=== PATIENT | male | born 1965 | race African-American/Black ===

== ENCOUNTER 2017-12-02 05:49 | Inpatient (IN) | payer BC, OTHER ==
[2017-12-01 13:20] VITALS: BMI 26.6
[2017-12-02] MEDS ORDERED: GENTAMICIN SO4 80 MG/2 ML VIAL ONE ×3 (07:28→09:09)
[2017-12-02] MEDS ORDERED: BUPIVACAINE HCL/PF 0.5% (5MG/ML) 10 ML VIAL ONE ×2 (07:29→09:09)
[2017-12-02] MEDS ORDERED: THROMBIN (BOVINE) 20,000 UNIT VIAL TP ONE ×2 (07:29→09:09)
[2017-12-02] MEDS ORDERED: LIDOCAINE 1%/EPI 1:100000 (20 ML MULTI DOSE VIAL) ONE ×2 (07:29→09:09)
--- NOTE | 2017-12-02 08:08 | HP ---
History & Physical Update - History History: No Change - Physical Physical: No Change - Assessment Assessment: No Change - Plan Plan: No Change (no interval changes since visit with song pitts on . proceed with surgery as discussed with Dr Bland)
[2017-12-02] MEDS ORDERED: fentaNYL CITRATE 250 MCG/5 ML VIAL ONE ×3 (08:24→10:59)
[2017-12-02] MEDS ORDERED: PROPOFOL 20 ML ONE ×3 (08:24→10:43)
[2017-12-02] MEDS ORDERED: ROCURONIUM BROMIDE 50 MG/5 ML VIAL ONE ×3 (08:24→11:22)
[2017-12-02] MEDS ORDERED: MIDAZOLAM HCL 2 MG/2 ML SINGLE DOSE VIAL ONE ×2 (08:25→12:40)
[2017-12-02] MEDS ORDERED: ceFAZolin SODIUM 1 GM VIAL ONE ×2 (08:31→11:51)
[2017-12-02] MEDS ORDERED: SODIUM CHLORIDE 0.9% P/F 10 ML VIAL IJ ONE ×2 (08:31→11:51)
[2017-12-02] MEDS ORDERED: ceFAZolin SODIUM 1 GM VIAL IVPB ONE (08:55)
[2017-12-02] MEDS ORDERED: VANCOMYCIN 1,000 MG VIAL (RESTRICTED TO ID ONLY) ONE ×2 (08:55→08:59)
[2017-12-02] MEDS ORDERED: VANCOMYCIN 1,000 MG VIAL (RESTRICTED TO ID ONLY) IVPB ONE (09:00)
[2017-12-02] MEDS ORDERED: DESFLURANE GAS 240 ML BOTTLE IH ONE (09:00)
[2017-12-02] MEDS ORDERED: ONDANSETRON 4 MG/2 ML VIAL ONE ×2 (09:05→12:27)
[2017-12-02] MEDS ORDERED: DEXAMETHASONE SOD PHOSPHATE 4 MG/1 ML VIAL ONE ×3 (09:05→15:47)
[2017-12-02] MEDS ORDERED: LIDOCAINE 1%/EPI 1:100000 (20 ML MULTI DOSE VIAL) INF ONE (09:09)
[2017-12-02] MEDS ORDERED: GENTAMICIN SO4 80 MG/2 ML VIAL IVPB ONE (09:11)
[2017-12-02] MEDS ORDERED: BACITRACIN 50,000 UNITS VIAL TP ONE (09:12)
[2017-12-02] MEDS ORDERED: THROMBIN (BOVINE) 5,000 UNIT VIAL TP ONE (09:12)
[2017-12-02] MEDS ORDERED: BUPIVACAINE HCL/PF 0.5% (5MG/ML) 10 ML VIAL IJ ONE ×2 (10:12→11:53)
[2017-12-02] MEDS ORDERED: GLYCOPYRROLATE 0.2 MG/1 ML VIAL ONE (12:04)
[2017-12-02] MEDS ORDERED: NEOSTIGMINE METHYLSULFATE 0.5 MG/ML - 10 ML MDV ONE (12:05)
[2017-12-02] MEDS ORDERED: PROMETHAZINE HCL 25 MG/1 ML VIAL IVPB PRN (12:50)
[2017-12-02] MEDS ORDERED: ONDANSETRON 4 MG/2 ML VIAL IVPUSH PRN ×2 (12:50→12:57)
[2017-12-02] MEDS ORDERED: DEXAMETHASONE SOD PHOSPHATE 4 MG/1 ML VIAL IVPUSH ONE (12:50)
[2017-12-02] MEDS ORDERED: HYDROmorphone *PCA* 6MG/30ML DISP.SYRIN PCA ONE (12:53)
[2017-12-02] MEDS ORDERED: LACTATED RINGERS SOLUTION 1,000 ML IV SCH (13:00)
[2017-12-02] MEDS: LACTATED RINGERS SOLUTION 1,000 ML IV SCH ×2 (13:00→21:45)
--- NOTE | 2017-12-02 13:41 | SURG ---
Surgery Private Inquiry Agent Note Private Inquiry Agent: Cindy Reyna PA-C Date of Service: 12/02/17 Diagnosis: cervical spondylosis Procedure: cervical 4-5 corpectomies and christian of lordosis and reconstruction with peek cage and anterior plate, Cervical 3-7 laminectomies and lateral mass instrumentation I was present for the entirety of the operative procedure. For further detail, please refer to operative report. Visit type - Case Type Case Type: Scheduled Admission - Emergency Emergency Visit: No - New patient This patient is new to me today: Yes Date on this admission: 12/02/17
--- NOTE | 2017-12-02 13:41 | OP ---
Operative Note - Note: Operative Date: 12/02/17 Pre-Operative Diagnosis: cervical spondylosis Operation: cervical 4-5 corpectomies and muslim of lordosis and reconstruction with peek cage and anterior plate, Cervical 3-7 laminectomies and lateral mass instrumentation Post-Operative Diagnosis: Same as Pre-op Surgeon: Te Bland Paint Roller Cover Machine Setter: Cindy Reyna Anesthesiologist/PLANIMETER OPERATOR: Mateus Albrecht Anesthesia: General, Local Estimated Blood Loss (mls): 550 Drains, Volume Out (mls): 125 (urine from garcias) Fluid Volume Replaced (mls): 1,200 Operative Report Dictated: Yes
--- NOTE | 2017-12-02 14:23 | CON.ID ---
Consult Consult Specialty:: infectious diseases Reason for Consultation:: post op, uti - History of Present Illness Chief Complaint: h/o neck pain arm pain and numbness History of Present Illness: patient with h/o of neck and arm pain and numbness was seen by neurosurgery and taken to the OR for cervical 4-5 corpectomies and congregation of lordosis and reconstruction with peek cage and anterior plate, Cervical 3-7 laminectomies and lateral mass instrumentation. patient currently post op and stable receive abx during the procedure in neck collar - History Source History Provided By: Patient, Medical Record Limitations to Obtaining History: Clinical Condition - Alcohol/Substance Use Hx Alcohol Use: Yes (OCCAS) - Smoking History Smoking history: Current every day smoker Have you smoked in the past 12 months: Yes Aproximately how many cigarettes per day: 12 Home Medications - Allergies Allergies/Adverse Reactions: Allergies Allergy/AdvReac Type Severity Reaction Status Date / Time No Known Allergies Allergy Verified 12/02/17 07:37 - Home Medications Home Medications: Ambulatory Orders NK [No Known Home Medication] 12/01/17 Review of Systems - Review of Systems Constitutional: reports: No Symptoms Eyes: reports: No Symptoms HENT: reports: No Symptoms Neck: reports: Pain on Movement, Stiffness Cardiovascular: reports: No Symptoms Respiratory: reports: No Symptoms Gastrointestinal: reports: No Symptoms Musculoskeletal: reports: Other (arm numbness) Integumentary: reports: No Symptoms Neurological: reports: Numbness (of the arm) Hematology/Lymphatic: reports: No Symptoms Psychiatric: reports: No Symptoms Physical Exam Vital Signs: Vital Signs Temperature 97.2 F L 12/02/17 12:42 Pulse Rate 102 H 12/02/17 14:00 Respiratory Rate 16 12/02/17 14:00 Blood Pressure 139/74 12/02/17 14:00 O2 Sat by Pulse Oximetry (%) 99 12/02/17 13:55 Constitutional: Yes: No Distress, Calm Neck: Yes: Other (in rigid collar) Cardiovascular: Yes: Regular Rate and Rhythm Respiratory: Yes: Regular, CTA Bilaterally Gastrointestinal: Yes: Normal Bowel Sounds, Soft Musculoskeletal: Yes: Other Extremities: Yes: WNL Wound/Incision: Yes: Other (in neck collar has 2 drains) Neurological: Yes: Alert, Oriented Psychiatric: Yes: Alert, Oriented Assessment/Plan Problem List - Problems (1) Herniated disc, cervical Code(s): M50.20 - OTHER CERVICAL DISC DISPLACEMENT, UNSP CERVICAL REGION (2) 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
[2017-12-02] MEDS: HEPARIN NA (PORCINE) 5,000 UNITS/ML 1ML VIAL SQ SCH ×2 (15:40→21:46)
[2017-12-02] MEDS ORDERED: HEPARIN NA (PORCINE) 5,000 UNITS/ML 1ML VIAL ONE (15:47)
--- NOTE | 2017-12-02 18:01 | HP ---
Admitting History and Physical - Primary Care Physician PCP: Moises Cardozo - Admission Chief Complaint: neck pain, arm pain/numbness History of Present Illness: cervical 4-5 corpectomies and anglican of lordosis and reconstruction with peek cage and anterior plate, Cervical 3-7 laminectomies and lateral mass instrumentation. History Source: Patient Limitations to Obtaining History: No Limitations - Past Surgical History Past Surgical History: Yes: None - Smoking History Smoking history: Current every day smoker Have you smoked in the past 12 months: Yes Aproximately how many cigarettes per day: 12 - Alcohol/Substance Use Hx Alcohol Use: Yes (OCCAS) - Social History Usual Living Arrangement: Yes: Alone ADL: Independent History of Recent Travel: No Home Medications - Allergies Allergies/Adverse Reactions: Allergies Allergy/AdvReac Type Severity Reaction Status Date / Time No Known Allergies Allergy Verified 12/02/17 07:37 - Home Medications Home Medications: Ambulatory Orders NK [No Known Home Medication] 12/01/17 Family Disease History - Family Disease History Family History: Unremarkable Review of Systems - Review of Systems Constitutional: reports: No Symptoms Neck: reports: Other (post op collar, pain) Respiratory: reports: No Symptoms Gastrointestinal: reports: No Symptoms Genitourinary: reports: No Symptoms Integumentary: reports: No Symptoms Neurological: reports: No Symptoms Endocrine: reports: No Symptoms Physical Examination Vital Signs: Vital Signs Temperature 97.2 F L 12/02/17 12:42 Pulse Rate 67 12/02/17 16:40 Respiratory Rate 16 12/02/17 16:40 Blood Pressure 144/92 12/02/17 16:40 O2 Sat by Pulse Oximetry (%) 98 12/02/17 16:40 Constitutional: Yes: Well Nourished, Calm Eyes: Yes: Conjunctiva Clear HENT: Yes: Atraumatic, Normocephalic Neck: Yes: Other (in cervical collar) Cardiovascular: Yes: Regular Rate and Rhythm Respiratory: Yes: CTA Bilaterally Gastrointestinal: Yes: Normal Bowel Sounds, Soft Renal/: Yes: WNL Extremities: Yes: WNL Edema: No Peripheral Pulses WNL: Yes Integumentary: Yes: Other (surgical wound covered, 2 drains present with sanguinous drainage) Neurological: Yes: WNL ...Motor Strength: WNL Psychiatric: Yes: WNL Imaging - Results Cat Scan: Pending (done) Problem List - Problems (1) Herniated disc, cervical Code(s): M50.20 - OTHER CERVICAL DISC DISPLACEMENT, UNSP CERVICAL REGION (2) 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
[2017-12-02] MEDS: HYDROmorphone *PCA* 6MG/30ML DISP.SYRIN PCA SCH (19:03)
[2017-12-02] MEDS: NICOTINE 21 MG/24 HOURS TOPICAL PATCH TD SCH (19:03)
[2017-12-02] MEDS: CEFAZOLIN 1 GM/D5W 1 GM/50 ML BAG IVPB SCH (20:05)
[2017-12-03] MEDS: CEFAZOLIN 1 GM/D5W 1 GM/50 ML BAG IVPB SCH ×3 (01:26→17:18)
[2017-12-03] MEDS: HEPARIN NA (PORCINE) 5,000 UNITS/ML 1ML VIAL SQ SCH ×3 (06:10→21:23)
[2017-12-03] MEDS: LACTATED RINGERS SOLUTION 1,000 ML IV SCH ×3 (06:57→15:53)
--- NOTE | 2017-12-03 08:12 | PN ---
Progress Note (short form) - Note Progress Note: c/o neck pain, otherwise well. 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
[2017-12-03 08:53] LABS: HEMATOCRIT 33.8 % (35.4-49); HEMOGLOBIN 11.3 GM/dL (11.7-16.9); MCH 33.5 pg (25.7-33.7); MCHC 33.6 g/dl (32.0-35.9); MEAN CELL VOLUME 99.8 fl (80-96); MEAN PLT VOLUME 8.9 fl (7.5-11.1); PLATELET COUNT 276 K/MM3 (134-434); RBC 3.39 M/mm3 (4.00-5.60); RDW 12.2 % (11.9-15.9); WHITE BLOOD COUNT 17.4 K/mm3 (4.0-10.0)
[2017-12-03] MEDS: HYDROmorphone *PCA* 6MG/30ML DISP.SYRIN PCA SCH ×2 (08:56→14:09)
[2017-12-03 09:15] LABS: ALBUMIN 3.2 g/dl (3.4-5.0); ANION GAP 10 (8-16); BLOOD UREA NITROGEN 11 mg/dL (7-18); CALCIUM 8.8 mg/dL (8.5-10.1); CHLORIDE 106 mmol/L (98-107); CO2 26 mmol/L (21-32); GLUCOSE,RANDOM 112 mg/dL (74-106); POTASSIUM 4.2 mmol/L (3.5-5.1); SODIUM 142 mmol/L (136-145)
[2017-12-03 09:19] LABS: ALK PHOS 59 U/L (45-117); BILIRUBIN,TOTAL 0.6 mg/dL (0.2-1.0); SGOT/AST 25 U/L (15-37); SGPT/ALT 31 U/L (12-78); TOT PROT 5.8 g/dl (6.4-8.2)
[2017-12-03] MEDS: NICOTINE 21 MG/24 HOURS TOPICAL PATCH TD SCH (10:40)
--- NOTE | 2017-12-03 10:43 | PN ---
Progress Note (short form) - Note Progress Note: Patient with unrelieved pain this morning. Denies nausea; vomiting; itching; muscle spasms in cervical pain. Vital Signs Temperature 97.4 F L 12/03/17 10:00 Pulse Rate 74 12/03/17 10:00 Respiratory Rate 20 12/03/17 10:00 Blood Pressure 143/81 12/03/17 10:00 O2 Sat by Pulse Oximetry (%) 100 12/02/17 21:00 Patient is a 52 year old male who is post-op Day #1 s/p C3-C7 ACDF with no acute post surgical issues. Reporting unrelieved pain. Plan: - Pain team to follow up - Recommend d/c BOILER OPERATOR HELPER and start on oral pain medication if no nausea or vomiting and tolerating PO well - Morphine 4 mg sq x1 now - Add Lyrica 75 mg PO BID - neurosurgery will continue to follow - Care as per primary team Discussed with Dr. Baldo MD.
[2017-12-03] MEDS ORDERED: morphine SULFATE 4 MG/ML VIAL SQ ONE ×2 (11:10→11:15)
--- NOTE | 2017-12-03 11:55 | PN ---
Progress Note, Physician History of Present Illness: main issue is pain otherwise patient doing well - Current Medication List Current Medications: Active Medications Fentanyl (Sublimaze Injection -) 50 mcg IVPUSH [id number] PRN PRN Reason: PAIN-PACU ORDER X 4 DOSES ONLY Heparin Sodium (Porcine) (Heparin -) 5,000 unit SQ TID [facility] Last Admin: 12/03/17 06:10 Dose: 5,000 unit Hydromorphone HCl (Dilaudid Ambulance Operations Supervisor -) 6 mg OCTAVE BOARD RACKER OCTAVE BOARD RACKER [facility] PRN Reason: Protocol Stop: 12/09/17 12:50 Last Admin: 12/03/17 08:56 Dose: 6 mg Lactated Ringer's (Lactated Ringers Solution) 1,000 mls @ 125 mls/hr IV ASDIR [facility] Last Admin: 12/03/17 06:57 Dose: 125 mls/hr Cefazolin Sodium (Ancef 1 Gm Premixed Ivpb -) 1 gm in 50 mls @ 100 mls/hr IVPB Q8H-IV [facility] Last Admin: 12/03/17 10:39 Dose: 100 mls/hr Nicotine (Nicoderm Patch -) 21 mg TD DAILY [facility] Last Admin: 12/03/17 10:40 Dose: 21 mg Ondansetron HCl (Zofran Injection) 4 mg IVPUSH Q4H PRN PRN Reason: NAUSEA AND/OR VOMITING Ondansetron HCl (Zofran Injection) 4 mg IVPUSH Q6H PRN PRN Reason: NAUSEA AND/OR VOMITING Pregabalin (Lyrica -) 75 mg PO BID [facility] Promethazine HCl (Phenergan Injection -) 12.5 mg IVPB Q6H PRN PRN Reason: NAUSEA AND/OR VOMITING - Objective Vital Signs: Vital Signs Temperature 97.4 F L 12/03/17 10:00 Pulse Rate 74 12/03/17 10:00 Respiratory Rate 20 12/03/17 10:00 Blood Pressure 143/81 12/03/17 10:00 O2 Sat by Pulse Oximetry (%) 100 12/02/17 21:00 Constitutional: Yes: Calm, Mild Distress Neck: Yes: Other (hard collar,neck pain) Cardiovascular: Yes: Regular Rate and Rhythm Respiratory: Yes: Regular, CTA Bilaterally Gastrointestinal: Yes: Normal Bowel Sounds, Soft Musculoskeletal: Yes: WNL Extremities: Yes: WNL Wound/Incision: Yes: Other (daiange tube in place) Neurological: Yes: Alert, Oriented Psychiatric: Yes: Alert, Oriented Labs: CBC, BMP 12/03/17 07:47 12/03/17 07:47 - ....Imaging X-ray: Report Reviewed, Image Reviewed Assessment/Plan Problem List - Problems (1) Herniated disc, cervical Code(s): M50.20 - OTHER CERVICAL DISC DISPLACEMENT, UNSP CERVICAL REGION (2) 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
--- NOTE | 2017-12-03 13:47 | PN ---
Progress Note (short form) - Note Progress Note: Post op day#1.S/P Anterior C4-C5 corpectomy with correction of lordosis and peek cage placement,C3-C6 fusion.C3-C7 Posterior decompression with fusion under GA uneventful.Patient stable on Dilaudid ACADEMIC HOSPITALIST c/o pain score of 6-7/ 10.Will add Ofimev and will f/u tomorrow.
[2017-12-03] MEDS: PREGABALIN 75 MG CAPSULE PO SCH (21:23)
[2017-12-04] MEDS: ACETAMINOPHEN 1000 MG/100 ML VIAL (NON FORMULARY) IVPB PRN ×2 (01:35→23:40)
[2017-12-04] MEDS: CEFAZOLIN 1 GM/D5W 1 GM/50 ML BAG IVPB SCH ×3 (01:36→18:20)
[2017-12-04] MEDS: HYDROmorphone *PCA* 6MG/30ML DISP.SYRIN PCA SCH ×2 (02:45→14:46)
[2017-12-04] MEDS: LACTATED RINGERS SOLUTION 1,000 ML IV SCH ×2 (03:44→14:45)
[2017-12-04] MEDS: HEPARIN NA (PORCINE) 5,000 UNITS/ML 1ML VIAL SQ SCH ×3 (05:44→22:08)
[2017-12-04] MEDS ORDERED: PT OWN MED DRAWER 7, Y5N ONE (06:43)
[2017-12-04 07:03] LABS: HEMATOCRIT 32.4 % (35.4-49); MCH 33.5 pg (25.7-33.7); MCHC 34.1 g/dl (32.0-35.9); MEAN CELL VOLUME 98.3 fl (80-96); PLATELET COUNT 267 K/MM3 (134-434); RBC 3.29 M/mm3 (4.00-5.60); RDW 12.2 % (11.9-15.9); WHITE BLOOD COUNT 11.9 K/mm3 (4.0-10.0)
[2017-12-04 07:25] LABS: CHLORIDE 104 mmol/L (98-107); POTASSIUM 4.2 mmol/L (3.5-5.1); SODIUM 140 mmol/L (136-145)
[2017-12-04 07:31] LABS: ALBUMIN 3.2 g/dl (3.4-5.0); ALK PHOS 58 U/L (45-117); ANION GAP 10 (8-16); BILIRUBIN,TOTAL 0.5 mg/dL (0.2-1.0); BLOOD UREA NITROGEN 9 mg/dL (7-18); CALCIUM 8.9 mg/dL (8.5-10.1); CO2 26 mmol/L (21-32); CREATININE 0.8 mg/dL (0.7-1.3); GLUCOSE,RANDOM 91 mg/dL (74-106); SGOT/AST 28 U/L (15-37); SGPT/ALT 31 U/L (12-78); TOT PROT 5.8 g/dl (6.4-8.2)
--- NOTE | 2017-12-04 08:06 | PN ---
Progress Note (short form) - Note Progress Note: POD #2 - s/p cervical fusion/decompression under GA with dilaudid [facility] for postop pain management. VSS. Pt. doing well, resting comfortably in bed. States pain has lessened. Will continue [facility] for now and consider change to PO meds tomorrow.
--- NOTE | 2017-12-04 08:37 | PN ---
Progress Note (short form) - Note Progress Note: feeling better CBC, BMP 12/04/17 05:35 12/04/17 05:35 Vital Signs Period Temp Pulse Resp BP Sys/Rob Pulse Ox Last 24 Hr 97.4 F-98.3 F 70-93 18-20 134-149/70-81 95 S1S2 RRR lungs cta abd soft NT no edema motor strength in both hands good no numbness POD#2 cervical 4-5 corpectomies and jew of lordosis and reconstruction with peek cage and anterior plate, Cervical 3-7 laminectomies and lateral mass instrumentation encourage ambulation diet abx as per ID INDIVIDUAL PENSION CONSULTANT until tomorrow Problem List - Problems (1) Herniated disc, cervical Code(s): M50.20 - OTHER CERVICAL DISC DISPLACEMENT, UNSP CERVICAL REGION (2) 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
[2017-12-04] MEDS: NICOTINE 21 MG/24 HOURS TOPICAL PATCH TD SCH (10:54)
[2017-12-04] MEDS: PREGABALIN 75 MG CAPSULE PO SCH ×2 (10:54→22:08)
--- NOTE | 2017-12-04 12:14 | PN ---
Progress Note, Physician History of Present Illness: patient doing well pain main issues - Current Medication List Current Medications: Active Medications Acetaminophen (Ofirmev Injection -) 1,000 mg IVPB Q6H PRN PRN Reason: PAIN LEVEL 6-10 Last Admin: 12/04/17 01:35 Dose: 1,000 mg Heparin Sodium (Porcine) (Heparin -) 5,000 unit SQ TID [facility] Last Admin: 12/04/17 05:44 Dose: 5,000 unit Hydromorphone HCl (Dilaudid Candy Decorator -) 6 mg PLEASURE CRAFT SAILOR PLEASURE CRAFT SAILOR [facility] PRN Reason: Protocol Stop: 12/09/17 12:50 Last Admin: 12/04/17 02:45 Dose: 6 mg Lactated Ringer's (Lactated Ringers Solution) 1,000 mls @ 125 mls/hr IV ASDIR [facility] Last Admin: 12/04/17 03:44 Dose: 125 mls/hr Cefazolin Sodium (Ancef 1 Gm Premixed Ivpb -) 1 gm in 50 mls @ 100 mls/hr IVPB Q8H-IV [facility] Last Admin: 12/04/17 10:54 Dose: 100 mls/hr Nicotine (Nicoderm Patch -) 21 mg TD DAILY [facility] Last Admin: 12/04/17 10:54 Dose: 21 mg Ondansetron HCl (Zofran Injection) 4 mg IVPUSH Q4H PRN PRN Reason: NAUSEA AND/OR VOMITING Ondansetron HCl (Zofran Injection) 4 mg IVPUSH Q6H PRN PRN Reason: NAUSEA AND/OR VOMITING Pregabalin (Lyrica -) 75 mg PO BID [facility] Last Admin: 12/04/17 10:54 Dose: 75 mg Promethazine HCl (Phenergan Injection -) 12.5 mg IVPB Q6H PRN PRN Reason: NAUSEA AND/OR VOMITING - Objective Vital Signs: Vital Signs Temperature 97.6 F 12/04/17 06:00 Pulse Rate 70 12/04/17 06:00 Respiratory Rate 20 12/04/17 06:00 Blood Pressure 137/74 12/04/17 06:00 O2 Sat by Pulse Oximetry (%) 95 12/03/17 21:00 Constitutional: Yes: No Distress, Calm Neck: Yes: Other (collar present) Cardiovascular: Yes: Regular Rate and Rhythm Respiratory: Yes: Regular, CTA Bilaterally Gastrointestinal: Yes: Normal Bowel Sounds, Soft Musculoskeletal: Yes: WNL Extremities: Yes: WNL Wound/Incision: Yes: Other Neurological: Yes: Alert, Oriented Psychiatric: Yes: Alert, Oriented Labs: CBC, BMP 12/04/17 05:35 12/04/17 05:35 Assessment/Plan Problem List - Problems (1) Herniated disc, cervical Code(s): M50.20 - OTHER CERVICAL DISC DISPLACEMENT, UNSP CERVICAL REGION (2) 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
--- NOTE | 2017-12-04 16:11 | PN ---
Progress Note (short form) - Note Progress Note: Patient is stable after circumferential decompression and stabilization. DANE outputs reducing. Pain controlled with BUSINESS SUPPORT SPECIALIST PLAN -Remove both DANE in AM -Wean BUSINESS SUPPORT SPECIALIST in AM per Anesthesia -D/C antibiotics in AM -Physical Therapy -Nicotine patches and consideration for Chantix to support smoking cessation. -Skin clip removal in 2 weeks in my office -Possible discharge tomorrow afternoon (Spoke in detail with Patient's sister who will come to help him get home)
[2017-12-05] MEDS: CEFAZOLIN 1 GM/D5W 1 GM/50 ML BAG IVPB SCH ×2 (01:19→10:32)
[2017-12-05] MEDS: HEPARIN NA (PORCINE) 5,000 UNITS/ML 1ML VIAL SQ SCH ×2 (05:59→13:19)
[2017-12-05 07:24] LABS: HEMATOCRIT 33.1 % (35.4-49); HEMOGLOBIN 11.4 GM/dL (11.7-16.9); MCH 33.7 pg (25.7-33.7); MCHC 34.5 g/dl (32.0-35.9); MEAN CELL VOLUME 97.6 fl (80-96); MEAN PLT VOLUME 8.8 fl (7.5-11.1); PLATELET COUNT 297 K/MM3 (134-434); RBC 3.39 M/mm3 (4.00-5.60); RDW 12.1 % (11.9-15.9); WHITE BLOOD COUNT 10.3 K/mm3 (4.0-10.0)
[2017-12-05] MEDS ORDERED: oxyCODONE HCL 5 MG TABLET PO PRN (07:57)
--- NOTE | 2017-12-05 08:00 | PN ---
Progress Note (short form) - Note Progress Note: surgery POD #3 Patient seen and examined at bedside with no new c/o states pain over left biceps unchanged. Patient states he is having pain over incision sites but it it mostly controlled. He denies any CP, SOB, N/V/D fever or chills. He is ambulating without assistance, voiding and tolerating his regular diet. He is eager to go home today and we have discussed with him at length that he cannot drive while taking narcotics or while wearing the c-collar. He has been advised to call for a ride or a ride will be provided for him. Vital Signs Temp 98.1 F 03/18 06:00 Pulse 78 12/05/17 06:00 Resp 16 12/05/17 06:00 BP 128/88 12/05/17 06:00 Pulse Ox 95 12/04/18 21:00 Intake & Output 12/04/18 12/04/18 18 11:59 23:59 11:59 Intake Total 500 1250 1400 Output Total 1860 660 60 Balance -3328 008 5544 Intake: IV 800 800 N/Saline 1000cc @ 83cc/h 800 800 IVPB 100 100 Oral 400 350 600 Output: Drainage 60 60 60 Right Anterior Neck 20 20 20 Right Upper Posterior 40 40 40 Back Urine 1800 600 Void 1800 600 Other: Voiding Method Urinal Urinal # Unmeasured Voids Void 2 Bowel Movement No # Bowel Movements 0 CBC, BMP 03//18 06:30 PE: A&Ox3, NAD unlabored resp on RA Posterior incision c/d/i with enoch insitu, no active d/c, no evidence of tracking erythema, edema or collection. Posterior drain pulled with tip fully intact, no active d/c from drain site. pressure dressing applied anterior incision c/d/i with no d/c, surrounding tissue flat with no evidence of tracking erythema collection or edema. ANterior drain pulled with tip fully intact pressure dressing applied. 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 Plan: 1) Dc COMMUNICATIONS PROFESSOR transition to oral pain control 2) C-Collar 23h/day 3) Pain contol 4) d/c planning for today- Patient again reminded he has been advised no to drive. Code(s): M49.82 - SPONDYLOPATHY IN DISEASES CLASSD ELSWHR, CERVICAL REGION
[2017-12-05 08:25] LABS: ALBUMIN 3.2 g/dl (3.4-5.0); ANION GAP 11 (8-16); BLOOD UREA NITROGEN 8 mg/dL (7-18); CALCIUM 8.9 mg/dL (8.5-10.1); CHLORIDE 103 mmol/L (98-107); CO2 26 mmol/L (21-32); GLUCOSE,RANDOM 107 mg/dL (74-106); POTASSIUM 4.5 mmol/L (3.5-5.1); SODIUM 140 mmol/L (136-145)
[2017-12-05 08:30] LABS: ALK PHOS 76 U/L (45-117); BILIRUBIN,TOTAL 0.7 mg/dL (0.2-1.0); CREATININE 0.8 mg/dL (0.7-1.3); SGOT/AST 77 U/L (15-37); SGPT/ALT 59 U/L (12-78); TOT PROT 6.2 g/dl (6.4-8.2)
--- NOTE | 2017-12-05 10:20 | PN ---
Progress Note (short form) - Note Progress Note: CBC, BMP 12/05/17 06:30 12/05/17 06:30 Vital Signs Period Temp Pulse Resp BP Sys/Rob Pulse Ox Last 24 Hr 98.1 F-99.1 F 66-98 16-18 124-158/83-94 95 S1S2 RRR lungs cta abd soft NT no edema motor strength in both hands good no numbness POD#3 cervical 4-5 corpectomies and gnosticist of lordosis and reconstruction with peek cage and anterior plate, Cervical 3-7 laminectomies and lateral mass instrumentation dc planning as per surgery Problem List - Problems (1) Herniated disc, cervical Code(s): M50.20 - OTHER CERVICAL DISC DISPLACEMENT, UNSP CERVICAL REGION (2) 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
[2017-12-05] MEDS: oxyCODONE HCL 5 MG TABLET PO PRN ×2 (10:39→13:14)
[2017-12-05] MEDS: NICOTINE 21 MG/24 HOURS TOPICAL PATCH TD SCH (10:39)
[2017-12-05] MEDS: PREGABALIN 75 MG CAPSULE PO SCH (10:40)
[2017-12-05 11:24] VITALS: BP 135/106; PULSE 93; TEMP 99.1
[2017-12-05] MEDS ORDERED: ACETAMINOPHEN 325 MG TABLET (FP) ONE (13:18)
--- NOTE | 2017-12-05 13:46 | PN ---
Progress Note, Physician History of Present Illness: patient doing well not able to lift his rt arm wbc within normal limit - Current Medication List Current Medications: Active Medications Acetaminophen (Ofirmev Injection -) 1,000 mg IVPB Q6H PRN PRN Reason: PAIN LEVEL 6-10 Last Admin: 12/04/17 23:40 Dose: 1,000 mg Heparin Sodium (Porcine) (Heparin -) 5,000 unit SQ TID [facility] Last Admin: 12/05/17 13:19 Dose: Not Given Nicotine (Nicoderm Patch -) 21 mg TD DAILY [facility] Last Admin: 12/05/17 10:39 Dose: 21 mg Ondansetron HCl (Zofran Injection) 4 mg IVPUSH Q4H PRN PRN Reason: NAUSEA AND/OR VOMITING Ondansetron HCl (Zofran Injection) 4 mg IVPUSH Q6H PRN PRN Reason: NAUSEA AND/OR VOMITING Oxycodone HCl (Roxicodone -) 5 mg PO Q4H PRN PRN Reason: PAIN LEVEL 1-5 Oxycodone HCl (Roxicodone -) 10 mg PO Q4H PRN PRN Reason: PAIN LEVEL 6-10 Last Admin: 12/05/17 13:14 Dose: 10 mg Pregabalin (Lyrica -) 75 mg PO BID [facility] Last Admin: 12/05/17 10:40 Dose: 75 mg Promethazine HCl (Phenergan Injection -) 12.5 mg IVPB Q6H PRN PRN Reason: NAUSEA AND/OR VOMITING - Objective Vital Signs: Vital Signs Temperature 99.1 F 12/05/17 10:00 Pulse Rate 93 H 12/05/17 10:00 Respiratory Rate 18 12/05/17 10:00 Blood Pressure 135/106 12/05/17 10:00 O2 Sat by Pulse Oximetry (%) 95 12/05/17 09:00 Constitutional: Yes: No Distress, Calm Cardiovascular: Yes: Regular Rate and Rhythm Respiratory: Yes: Regular, CTA Bilaterally Gastrointestinal: Yes: Normal Bowel Sounds, Soft Musculoskeletal: Yes: WNL Extremities: Yes: WNL Neurological: Yes: Alert, Oriented, Other (unable to lift his arm over the head rt side) Psychiatric: Yes: Alert, Oriented Labs: CBC, BMP 12/05/17 06:30 12/05/17 06:30 Assessment/Plan Problem List - Problems (1) Herniated disc, cervical Code(s): M50.20 - OTHER CERVICAL DISC DISPLACEMENT, UNSP CERVICAL REGION (2) 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
--- NOTE | 2017-12-05 17:35 | PN ---
Progress Note (short form) - Note Progress Note: Anesthesiology: FRAMING MILL SUPERVISOR discontinued earlier today and pt. was discharged.
--- NOTE | 2017-12-08 08:40 | DS ---
Physical Examination Vital Signs: Vital Signs Temperature 99.1 F 12/05/17 10:00 Pulse Rate 93 H 12/05/17 10:00 Respiratory Rate 18 12/05/17 10:00 Blood Pressure 135/106 12/05/17 10:00 O2 Sat by Pulse Oximetry (%) 95 12/05/17 09:00 Labs: CBC, BMP 12/05/17 06:30 12/05/17 06:30 Discharge Summary Reason For Visit: CERVICAL SPONDYLOTIC MYELOPATHY Hospital Course: cervical 4-5 corpectomies and scientologist of lordosis and reconstruction with peek cage and anterior plate, Cervical 3-7 laminectomies and lateral mass instrumentation, postop recovery was unbventful, drains HEAD BONE GRINDER discontinues, afebrile, WBC down, cleared by neurosurgeon to dc home. f/up as outpt within 1 week - Instructions Diet, Activity, Other Instructions: Dr. Bland's Discharge Instructions Post Operative Instructions Physical activity Resume your normal everyday activity as tolerated no heavy lifting or exercise until seen by your surgeon. You may walk unlimited amounts of and climb stairs. You may resume driving the car when you feel safe and comfortable behind the wheel and you are no longer wearing your c-collar/brace or taking narcotic medication.Increase activity as tolerated, increase ROM of both arms Brace If you have a c-collar it should be worn for 23hour/day only removing it to shower. If you have a back (TLSO) brace, you should wear it when out of bed for more than 5 minuets and remove it to sleep and shower. Wound care Keep your dressing on and dry for 48 - 72 hours. After that time discard the outer bandage and shower 2 days after surgery, but do not submerge the incision. Do not scrub/ rub or apply lotion or ointments to incision. If you have enoch, they will be removed in your surgeon's office in 10-14 days. Diet There are no dietary restrictions. Eat healthy, high-fiber foods. Drink 6 to 8 glasses of liquid each day. This will assist in keeping your bowels are regular. Pain management You may take Tylenol or acetaminophen for pain. Any prescription medication should be taken as directed. Call Dr. Bland for any of the following: Severe pain not relieved by medication Fever of 101 or higher Excessive bleeding or drainage on dressing Inability to urinate New or worsening symptoms If you experience any chest pain or shortness of breath seek emergency care immediately. Call the office upon discharge to confirm your post operative appointment. Referrals: Te Bland MD, FAANS [Staff Physician] - Pinky Singh MD [Staff Physician] - Disposition: HOME - Home Medications Comprehensive Discharge Medication List: Ambulatory Orders Nicotine Patch [Nicoderm Patch -] 21 mg TD DAILY #10 patch 12/05/17 Oxycodone HCl/Acetaminophen [Percocet 10-325 mg Tablet] 1 each PO QID PRN #28 tablet MDD 4 12/05/17 Pregabalin [Lyrica -] 75 mg PO BID #30 capsule MDD 2 12/05/17
== END 2017-12-05 15:45 | disposition home or self-care (01) | DRG 473 ==
LOC: JSAMEDAYSX 05:49 → EDSTATUS 08:00 → J8W 18:24
PROVIDERS: ADMIT Internal Medicine; ATTEND Internal Medicine
PROC: 0RG207J Fusion of 2 or more Cervical Vertebral Joints with Autologous Tissue Substitute, Posterior Approach, Anterior Column, Open Approach (ICD-10-PCS; 2017-12-02)
PROC: 0RG20AJ Fusion of 2 or more Cervical Vertebral Joints with Interbody Fusion Device, Posterior Approach, Anterior Column, Open Approach (ICD-10-PCS; principal; 2017-12-02 08:00)
DX: M50.20 Other cervical disc displacement, unspecified cervical region (principal); M49.82 Spondylopathy in diseases classified elsewhere, cervical region; F17.210 Nicotine dependence, cigarettes, uncomplicated
CPT/HCPCS: 36415; 72125-TC; 76000-TC-FY; 80053; 85027; 86850; 86900; 86901; 94010; 94760; 97116-GP; 97161-GP; J0131; J1170; J1644